=== PATIENT | male | born 1955 | race Caucasian/White ===

== ENCOUNTER 2017-06-02 09:06 | Emergency (ER) | payer MEDICAID ==
[~2017-06-02] VITALS: Ht 172.7 cm; Wt 82.0 kg
[2017-06-02] MEDS ORDERED: P20 PO (09:20)
[2017-06-02] MEDS ORDERED: GABA-531 PO (09:20)
[2017-06-02] MEDS ORDERED: AMLO10TA80 PO (09:20)
[2017-06-02] MEDS ORDERED: BACL-141 PO (09:20)
[2017-06-02] MEDS ORDERED: ONDANSETRON HCL 4MG/2ML VIAL IV STA (09:53)
[2017-06-02] MEDS ORDERED: SODIUM CHLORIDE 0.9% 1,000 ML IV ONE (09:53)
[2017-06-02] MEDS ORDERED: MORPHINE SULFATE 2 MG/ML CPJ (NOT FOR IM USE) IV ONE ×3 (10:00→14:00)
[2017-06-02 10:07] LABS: EOSINOPHILS % 1.6 % (0.0-5.0); HEMATOCRIT. 32.6 % (42.0-52.0); HEMOGLOBIN. 10.4 g/dL (14.0-18.0); LYMPHOCYTES % 13.1 % (20.0-50.0); MEAN CORPUSCULAR HEMOGLOBIN 24.5 pg (28.0-32.0); MEAN CORPUSCULAR VOLUME 77.1 fL (80.0-94.0); MEAN PLATELET VOLUME 6.7 fl (7.4-10.4); MONOCYTES % 8.5 % (2.0-8.0); NEUTROPHILS % 75.8 % (40.0-76.0); PLATELET 504 x1000/uL (130-400); RED BLOOD CELL COUNT 4.23 mill/uL (4.7-6.1); RED CELL DISTRIBUTION WIDTH 15.6 % (11.6-14.6)
[2017-06-02 10:15] LABS: INR 1.2; PROTHROMBIN TIME 12.5 sec (9.4-11.6)
[2017-06-02 10:22] LABS: CARBON DIOXIDE 25 mEq/L (21-32); CHLORIDE 99 mEq/L (98-107)
[2017-06-02] MEDS ORDERED: IOHEXOL-300 100 ML BOTTLE ONE (10:59)
[2017-06-02 12:14] LABS: GLUCOSE URINE NEGATIVE (NEGATIVE); KETONES URINE NEGATIVE (NEGATIVE); LEUKOCYTE ESTERASE URINE NEGATIVE (NEGATIVE); NITRITE URINE NEGATIVE (NEGATIVE); OCCULT BLOOD URINE NEGATIVE (NEGATIVE); PROTEIN URINE TRACE (NEGATIVE); SPECIFIC GRAVITY URINE 1.046 (1.005-1.030); UROBILINOGEN URINE 0.2 E.U./dL (0.2-1.0)
[2017-06-02 12:15] LABS: CLARITY URINE CLEAR (CLEAR); COLOR URINE YELLOW (YELLOW)
[2017-06-02] MEDS ORDERED: MORPHINE SULFATE 10 MG/ML CPJ IV ONE (14:15)
[2017-06-02 15:52] VITALS: BP 149/78
== END 2017-06-02 18:50 | disposition home or self-care (01) ==
LOC: ER 09:24
DX: R10.84 Generalized abdominal pain (principal); R11.2 Nausea with vomiting, unspecified; I10 Essential (primary) hypertension; Z85.038 Personal history of other malignant neoplasm of large intestine; Z93.3 Colostomy status
CPT/HCPCS: 36415; 74177; 80053; 81001; 83690; 85025; 85610; 96361; 96374; 96375; 96376; 99285; J2270; J2405; J7030; Q9967; Z7610

== ENCOUNTER 2018-05-01 04:34 | Inpatient (IN) | payer MEDICAID ==
[~2018-05-01] VITALS: Ht 167.6 cm; Wt 74.8 kg
[~2018-05-01 04:34] MED LIST: AMLO10TA80 PO; BACL-141 PO; GABA-531 PO
[2018-05-01 05:27] LABS: BASOPHILS % 1.3 % (0.0-2.0); EOSINOPHILS % 6.3 % (0.0-5.0); HEMATOCRIT. 34.2 % (42.0-52.0); HEMOGLOBIN. 11.5 g/dL (14.0-18.0); LYMPHOCYTES % 24.5 % (20.0-50.0); MEAN CORPUSCULAR HEMOGLOBIN 26.1 pg (28.0-32.0); MEAN CORPUSCULAR VOLUME 77.6 fL (80.0-94.0); MEAN PLATELET VOLUME 7.4 fl (7.4-10.4); MONOCYTES % 6.9 % (2.0-8.0); PLATELET 312 x1000/uL (130-400); RED BLOOD CELL COUNT 4.41 mill/uL (4.7-6.1); RED CELL DISTRIBUTION WIDTH 14.7 % (11.6-14.6)
[2018-05-01 05:34] LABS: INR 1.2; PROTHROMBIN TIME 12.2 sec (9.1-11.1)
[2018-05-01 05:36] LABS: CHLORIDE 110 mEq/L (98-107)
[2018-05-01 05:40] LABS: ETHANOL BLOOD 29 mg/dL
[2018-05-01] MEDS ORDERED: MORPHINE SULFATE 4 MG/ML CPJ (NOT FOR IM USE) IV STA (06:10)
[2018-05-01] MEDS ORDERED: SODIUM CHLORIDE 0.9% 1,000 ML IV ONE (06:10)
[2018-05-01] MEDS ORDERED: ONDANSETRON HCL 4MG/2ML INJ IV ONE (06:30)
[2018-05-01] MEDS ORDERED: MORPHINE SULFATE 4 MG/ML CPJ (NOT FOR IM USE) IV ONE ×2 (07:00→12:00)
[2018-05-01 07:22] LABS: CLARITY URINE CLEAR (CLEAR); COLOR URINE YELLOW (YELLOW); KETONES URINE NEGATIVE (NEGATIVE); LEUKOCYTE ESTERASE URINE NEGATIVE (NEGATIVE); NITRITE URINE NEGATIVE (NEGATIVE); OCCULT BLOOD URINE NEGATIVE (NEGATIVE); PH URINE 5.5 (4.5-8.0); PROTEIN URINE NEGATIVE (NEGATIVE); UROBILINOGEN URINE 0.2 E.U./dL (0.2-1.0)
[2018-05-01 07:47] LABS: *BARBITURATES SCREEN URINE NEGATIVE (NEGATIVE); *BENZODIAZEPINES SCREEN URINE NEGATIVE (NEGATIVE); *COCAINE SCREEN URINE PRESUMTIVE POSITIVE (NEGATIVE)
[2018-05-01 07:48] LABS: *AMPHETAMINES SCREEN URINE NEGATIVE (NEGATIVE); CANNABINOID URINE SCREEN NEGATIVE (NEGATIVE); METHADONE URINE SCREEN NEGATIVE (NEGATIVE); PHENCYCLIDINE URINE SCREEN NEGATIVE (NEGATIVE)
[2018-05-01 07:50] LABS: OPIATES URINE SCREEN PRESUMTIVE POSITIVE (NEGATIVE)
[2018-05-01] MEDS ORDERED: KETOROLAC 30MG/ML VIAL IV ONE (11:30)
[2018-05-01 18:45] VITALS: BP 155/78
[2018-05-01] MEDS ORDERED: ONDANSETRON HCL 4MG/2ML INJ IV PRN (18:45)
[2018-05-01] MEDS ORDERED: DOCUSATE SODIUM 100MG CAPSULE PO PRN (18:45)
[2018-05-01] MEDS ORDERED: CLONIDINE 0.1MG TABLET PO PRN (18:45)
[2018-05-01] MEDS ORDERED: ACETAMINOPHEN 325MG TABLET PO PRN (18:45)
[2018-05-01 19:30] VITALS: BP 152/81
[2018-05-01 20:00] VITALS: BP 140/81
[2018-05-01] MEDS ORDERED: TRAZ-212 PO (20:18)
[2018-05-01] MEDS ORDERED: CYM20 MT (20:18)
[2018-05-01] MEDS ORDERED: ASPI-1159 MT (20:20)
[2018-05-01] MEDS ORDERED: LORA5TAB8 PO (20:20)
[2018-05-01] MEDS ORDERED: IMOD PO (20:21)
[2018-05-01] MEDS: HYDROMORPHONE HCL/PF 2MG/ML CPJ IV PRN (21:02)
[2018-05-01] MEDS: AMLODIPINE 10MG TABLET PO SCH (23:18)
[2018-05-01] MEDS: DEXT 5%/0.45% NACL 1000ML 1,000 ML IV SCH (23:19)
[2018-05-02] VITALS: BP 133/72
[2018-05-02] MEDS ORDERED: GABAPENTIN 200 MG PO SCH (00:30)
[2018-05-02] MEDS: HYDROMORPHONE HCL/PF 2MG/ML CPJ IV PRN ×5 (02:47→20:09)
[2018-05-02 04:00] VITALS: BP 142/72
[2018-05-02 07:15] LABS: CHLORIDE 108 mEq/L (98-107)
[2018-05-02 07:36] LABS: BASOPHILS % 0.9 % (0.0-2.0); EOSINOPHILS % 7.4 % (0.0-5.0); HEMATOCRIT. 34.6 % (42.0-52.0); HEMOGLOBIN. 11.7 g/dL (14.0-18.0); LYMPHOCYTES % 27.1 % (20.0-50.0); MEAN CORPUSCULAR HEMOGLOBIN 26.4 pg (28.0-32.0); MEAN CORPUSCULAR VOLUME 77.9 fL (80.0-94.0); MONOCYTES % 8.8 % (2.0-8.0); NEUTROPHILS % 55.8 % (40.0-76.0); PLATELET 244 x1000/uL (130-400); RED BLOOD CELL COUNT 4.44 mill/uL (4.7-6.1); RED CELL DISTRIBUTION WIDTH 14.6 % (11.6-14.6)
[2018-05-02 08:00] VITALS: BP 117/66
[2018-05-02] MEDS: ASPIRIN 81MG TABLET PO SCH (08:56)
[2018-05-02] MEDS: DULOXETINE HCL 20MG DR CAPSULE PO SCH (08:56)
[2018-05-02] MEDS: GABAPENTIN 100MG CAPSULE PO SCH ×3 (08:56→16:44)
[2018-05-02] MEDS: AMLODIPINE 10MG TABLET PO SCH (08:56)
[2018-05-02] MEDS: LOPERAMIDE HCL 2MG CAPSULE PO SCH (08:56)
[2018-05-02] MEDS ORDERED: MEDICATION NOT ON FORMULARY EA (Aspirin (Aspirin Low Dose) 1 TAB) PO SCH (09:00)
[2018-05-02 12:00] VITALS: BP 118/64
[2018-05-02] MEDS: DEXT 5%/0.45% NACL 1000ML 1,000 ML IV SCH (14:55)
[2018-05-02 16:00] VITALS: BP 129/72
[2018-05-02 20:00] VITALS: BP 130/71
[2018-05-02] MEDS ORDERED: TRAZODONE HCL 50MG TABLET PO SCH (21:00)
[2018-05-02] MEDS ORDERED: MEDICATION NOT ON FORMULARY EA (Trazodone Hcl 50 MG) PO SCH (21:00)
[2018-05-03] VITALS: BP 110/60
[2018-05-03] MEDS: HYDROMORPHONE HCL/PF 2MG/ML CPJ IV PRN ×2 (00:46→06:13)
[2018-05-03 04:00] VITALS: BP 136/75
[2018-05-03 08:00] VITALS: BP 109/58
[2018-05-03] MEDS: ASPIRIN 81MG TABLET PO SCH (08:34)
[2018-05-03] MEDS: DULOXETINE HCL 20MG DR CAPSULE PO SCH (08:34)
[2018-05-03] MEDS: AMLODIPINE 10MG TABLET PO SCH (08:35)
[2018-05-03] MEDS: LOPERAMIDE HCL 2MG CAPSULE PO SCH (08:35)
[2018-05-03] MEDS: GABAPENTIN 100MG CAPSULE PO SCH ×2 (08:35→12:34)
[2018-05-03] MEDS: HYDROCODONE/ACETAMINOPHEN 5/325MG TABLET PO PRN ×2 (09:31→14:19)
[2018-05-03 12:00] VITALS: BP 109/61
[2018-05-03 14:38] VITALS: BP 109/61
[2018-05-03 16:00] VITALS: BP 107/54
== END 2018-05-03 17:25 | disposition home or self-care (01) | DRG 249 ==
LOC: ER 04:43 → EDBEDREQTM 12:01 → EDBEDREQ 12:01 → ENRESERV 17:29 → 6EST 18:11
PROVIDERS: ADMIT Emergency Medicine; ATTEND Emergency Medicine
DX: K52.1 Toxic gastroenteritis and colitis (principal); E87.8 Other disorders of electrolyte and fluid balance, not elsewhere classified; D50.9 Iron deficiency anemia, unspecified; F11.10 Opioid abuse, uncomplicated; F14.10 Cocaine abuse, uncomplicated; I10 Essential (primary) hypertension; R74.0 Nonspecific elevation of levels of transaminase and lactic acid dehydrogenase [LDH]; Z85.038 Personal history of other malignant neoplasm of large intestine; Z93.3 Colostomy status; Z79.899 Other long term (current) drug therapy; Z93.2 Ileostomy status; Z90.49 Acquired absence of other specified parts of digestive tract; Z71.51 Drug abuse counseling and surveillance of drug abuser; Z88.2 Allergy status to sulfonamides; Y92.89 Other specified places as the place of occurrence of the external cause; T40.5X5A Adverse effect of cocaine, initial encounter
CPT/HCPCS: 36415; 71045; 74176; 80048; 80053; 80305; 81003; 83690; 85025; 85610; 87493; 93005; 96361; 96374; 96375; 96376; 99285; A6261; G0482; J1170; J1885; J2270; J2405; J7030

== ENCOUNTER 2020-07-11 10:15 | Inpatient (IN) | payer MEDICAID ==
[~2020-07-11] VITALS: Ht 170.2 cm; Wt 56.7 kg
[~2020-07-11 10:15] MED LIST changes: +ASPI-1497 MT; +CYM20 MT; +IMOD PO; +LORA5TAB8 PO; +TRAZ-251 PO
[2020-07-11] MEDS ORDERED: MORPHINE SULFATE 4 MG/ML CPJ (NOT FOR IM USE) IV ONE (10:45)
[2020-07-11 11:14] LABS: CHLORIDE 109 mEq/L (98-107)
[2020-07-11 11:16] LABS: BASOPHILS % 0.4 % (0.0-2.0); EOSINOPHILS % 0.3 % (0.0-5.0); HEMATOCRIT. 34.9 % (42.0-52.0); LYMPHOCYTES % 13.8 % (20.0-50.0); MEAN CORPUSCULAR HEMOGLOBIN 30.2 pg (28.0-32.0); MEAN CORPUSCULAR VOLUME 88.2 fL (80.0-94.0); MEAN PLATELET VOLUME 7.7 fl (7.4-10.4); MONOCYTES % 7.8 % (2.0-8.0); NEUTROPHILS % 77.7 % (40.0-76.0); PLATELET 211 x1000/uL (130-400); RED BLOOD CELL COUNT 3.96 mill/uL (4.7-6.1); RED CELL DISTRIBUTION WIDTH 13.3 % (11.6-14.6)
[2020-07-11] MEDS ORDERED: POTASSIUM CHLORIDE 20MEQ TABLET SR PO ONE (11:45)
[2020-07-11] MEDS ORDERED: MORPHINE SULFATE 4 MG/ML CPJ (NOT FOR IM USE) IV NR (13:30)
[2020-07-11 17:15] VITALS: BP 135/56
[2020-07-11] MEDS ORDERED: DULO30CA52 PO (17:31)
[2020-07-11] MEDS ORDERED: OMEP20TA2 MT (17:31)
[2020-07-11] MEDS ORDERED: ONDANSETRON HCL 4MG/2ML INJ IV PRN (18:00)
[2020-07-11] MEDS ORDERED: ACETAMINOPHEN 325MG TABLET PO PRN (18:00)
[2020-07-11 18:18] VITALS: BP 135/56
[2020-07-11] MEDS: ENOXAPARIN 40MG/0.4ML SYR SUBCUT SCH (18:20)
[2020-07-11] MEDS: AMLODIPINE 10MG TABLET PO SCH (18:20)
[2020-07-11] MEDS: MORPHINE SULFATE 2 MG/ML CPJ (NOT FOR IM USE) IV PRN ×2 (18:21→23:18)
[2020-07-11 20:00] VITALS: BP_SYST 103; BP_SYST 132; BP_DIAS 50; BP_DIAS 54
[2020-07-11] MEDS: TRAZODONE HCL 50MG TABLET PO SCH (21:18)
[2020-07-11] MEDS: GABAPENTIN 300MG CAPSULE PO SCH (21:18)
[2020-07-11] MEDS: HYDROCODONE/ACETAMINOPHEN 10/325MG TABLET PO PRN (21:19)
[2020-07-12] VITALS: BP 129/51
[2020-07-12 04:00] VITALS: BP 127/48
[2020-07-12] MEDS: GABAPENTIN 300MG CAPSULE PO SCH ×4 (05:49→22:00)
[2020-07-12] MEDS: HYDROCODONE/ACETAMINOPHEN 10/325MG TABLET PO PRN ×3 (05:49→20:14)
[2020-07-12 08:00] VITALS: BP 134/57
[2020-07-12] MEDS: AMLODIPINE 10MG TABLET PO SCH (09:44)
[2020-07-12] MEDS: MORPHINE SULFATE 2 MG/ML CPJ (NOT FOR IM USE) IV PRN ×3 (09:45→22:13)
[2020-07-12 12:00] VITALS: BP_SYST 129; BP_SYST 144; BP_DIAS 60; BP_DIAS 85
[2020-07-12 16:16] VITALS: BP 136/71
[2020-07-12] MEDS: ENOXAPARIN 40MG/0.4ML SYR SUBCUT SCH (18:02)
[2020-07-12 20:00] VITALS: BP 118/67
[2020-07-12] MEDS: TRAZODONE HCL 50MG TABLET PO SCH (20:45)
[2020-07-13] VITALS: BP 132/64
[2020-07-13] MEDS: MORPHINE SULFATE 2 MG/ML CPJ (NOT FOR IM USE) IV PRN ×4 (02:26→20:31)
[2020-07-13] MEDS: HYDROCODONE/ACETAMINOPHEN 10/325MG TABLET PO PRN ×3 (05:54→18:14)
[2020-07-13] MEDS: GABAPENTIN 300MG CAPSULE PO SCH ×3 (05:56→22:00)
[2020-07-13 08:00] VITALS: BP 135/54
[2020-07-13] MEDS: AMLODIPINE 10MG TABLET PO SCH (08:51)
[2020-07-13 12:00] VITALS: BP 121/53
[2020-07-13 16:00] VITALS: BP 114/65
[2020-07-13] MEDS: ENOXAPARIN 40MG/0.4ML SYR SUBCUT SCH ×2 (18:15→18:17)
[2020-07-13 20:00] VITALS: BP 122/59
[2020-07-13] MEDS: TRAZODONE HCL 50MG TABLET PO SCH (20:42)
[2020-07-14] VITALS (7 sets, daily range): BP systolic 120–135; BP diastolic 54–63
[2020-07-14] MEDS: MORPHINE SULFATE 2 MG/ML CPJ (NOT FOR IM USE) IV PRN ×6 (00:32→23:55)
[2020-07-14] MEDS: HYDROCODONE/ACETAMINOPHEN 10/325MG TABLET PO PRN ×3 (02:59→21:31)
[2020-07-14] MEDS: GABAPENTIN 300MG CAPSULE PO SCH ×3 (05:18→21:31)
[2020-07-14] MEDS: AMLODIPINE 10MG TABLET PO SCH (09:05)
[2020-07-14] MEDS: ENOXAPARIN 40MG/0.4ML SYR SUBCUT SCH ×2 (18:11→18:23)
[2020-07-14] MEDS: TRAZODONE HCL 50MG TABLET PO SCH (21:00)
[2020-07-15] MEDS: HYDROCODONE/ACETAMINOPHEN 10/325MG TABLET PO PRN ×2 (03:09→12:02)
[2020-07-15 05:21] VITALS: BP 131/67
[2020-07-15] MEDS: MORPHINE SULFATE 2 MG/ML CPJ (NOT FOR IM USE) IV PRN ×2 (05:37→08:55)
[2020-07-15] MEDS: GABAPENTIN 300MG CAPSULE PO SCH (05:37)
[2020-07-15 08:00] VITALS: BP 128/70
[2020-07-15] MEDS: AMLODIPINE 10MG TABLET PO SCH ×2 (08:54→08:59)
[2020-07-15 12:00] VITALS: BP 137/56
[2020-07-15 12:02] VITALS: BP 128/70
[2020-07-15] MEDS ORDERED: HYDR-4001 MT (12:32)
== END 2020-07-15 13:46 | disposition home or self-care (01) | DRG 351 ==
LOC: ER 10:15 → 6EST 15:08 → ENRESERV 15:35
PROVIDERS: ADMIT Internal Medicine; ATTEND Internal Medicine
DX: M25.551 Pain in right hip (principal); G89.3 Neoplasm related pain (acute) (chronic); E87.8 Other disorders of electrolyte and fluid balance, not elsewhere classified; E87.6 Hypokalemia; I10 Essential (primary) hypertension; D64.9 Anemia, unspecified; Y83.8 Other surgical procedures as the cause of abnormal reaction of the patient, or of later complication, without mention of misadventure at the time of the procedure; R26.2 Difficulty in walking, not elsewhere classified; Z93.3 Colostomy status; Z85.038 Personal history of other malignant neoplasm of large intestine; Z88.2 Allergy status to sulfonamides; Z79.82 Long term (current) use of aspirin; Z79.899 Other long term (current) drug therapy; Z90.49 Acquired absence of other specified parts of digestive tract; Y92.89 Other specified places as the place of occurrence of the external cause
CPT/HCPCS: 36415; 72170; 73700; 80048; 85025; 97162; 97530; 97535; 99285; J1650; J2270